=== PATIENT | female | born 1975 | race Caucasian/White ===

== ENCOUNTER 2020-02-03 01:21 | Emergency (ER) | payer OTHER, MEDICAID, SELFPAY ==
[2020-02-03 01:35] VITALS: BP 171/93; PULSE 77; RESP 24; TEMP 36.4; O2SAT 100; BMI 37.5
--- NOTE | 2020-02-03 02:08 | DI.RAD.S_ITS ---
PROCEDURE: XR CHEST 1V INDICATIONS: palpitations TECHNIQUE: One view of the chest was acquired. COMPARISON: None. FINDINGS: Surgical changes and devices: None. Lungs and pleura: Lungs are clear. No pleural effusions or pneumothorax. Mediastinum: Mediastinal contours appear normal. Heart size is normal. Bones and chest wall: No suspicious bony lesions. Overlying soft tissues appear unremarkable. IMPRESSION: No acute pulmonary process. Dictated by: Nunu Rueda M.D. on 02/03/2020 at 9:15 Approved by: Nunu Rueda M.D. on 02/03/2020 at 9:15
[2020-02-03 02:11] VITALS: BP 155/80
[2020-02-03 03:03] LABS: Add Manual Diff / Slide Review NO; Basophils Absolute Auto 0 /uL (0-100); Basophils Percent Auto 0.5 % (0-2); Eosinophils Absolute Auto 0 /uL (0-450); Eosinophils Percent Auto 0.7 % (2-4); Hematocrit 36.9 % (36-46); Lymphocytes Absolute Auto 1500 /uL (1100-4500); Lymphocytes Percent Auto 21.7 % (25-40); Mean Corpuscular HGB Conc 32.7 % (30-36); Mean Corpuscular Hemoglobin 27.6 PG (26-34); Mean Corpuscular Volume 84.4 fL (80-100); Monocytes Absolute Auto 400 /uL (0-900); Monocytes Percent Auto 5.6 % (3-14); Neutrophils Absolute Auto 5000 /uL (1500-7000); Neutrophils Percent Auto 71.5 % (50-75); Platelet Count 250 X10^3/uL (150-400); Red Blood Cell Count 4.37 X10^6/uL (4.0-5.2); Red Cell Distribution Width 13.8 % (11.6-14.8); White Blood Cell Count 6.9 X10^3/uL (4.5-11.0)
[2020-02-03 03:07] LABS: Alanine Aminotransferase 16 IU/L (<35); Albumin Globulin Ratio 1.2 (1.0-2.8); Alkaline Phosphatase 89 U/L (38-126); Aspartate Aminotransferase 21 IU/L (14-36); BUN Creatinine Ratio 11.5 (6-22); Bilirubin Total 0.2 mg/dL (0.2-1.3); Blood Urea Nitrogen 7 mg/dL (7-17); Calcium 9.6 mg/dL (8.4-10.2); Carbon Dioxide 28 mmol/L (22-32); Chloride 103 mmol/L (98-107); Estimated Glomerular Filt Rate > 60.0 mL/min (>60); Globulin 3.4 g/dL (1.7-4.1); Glucose 109 mg/dL (70-100); HEMOLYSIS < 15 (0-50); Sodium 138 mmol/L (137-145); Total Protein 7.4 g/dL (6.3-8.2)
[2020-02-03 03:18] LABS: Troponin I < 0.012 ng/mL (0.01-0.034)
[2020-02-03 03:50] LABS: Thyroid Stimulating Hormone 2.75 uIU/mL (0.47-4.68)
--- NOTE | 2020-02-03 04:13 | ED_ITS ---
HPI - Chest Pain General Chief Complaint: Chest Pain Stated Complaint: heart misbeating/pain with every breath Time Seen by Provider: 02/03/20 01:41 Source: patient Mode of arrival: Family Vehicle History of Present Illness HPI narrative: 44-year-old woman with a history of sleep apnea prior episode of elevated BNP at 100, intermittent lower extremity edema and generalized anxiety presents with palpitations which she describes as being dramatically symptomatic every time she takes a deep breath and feeling like she is able to sleep only a few minutes while sitting up in a chair due to her sleep apnea. She has a self purchased oxygen canister for as needed use due to her perceived severity of sleep apnea. She states that the only thing that helps is 0.5 mg of Ativan and does note that it convenient that it also helps with some of her anxiety. Symptoms have been getting worse after an incident a week ago where she was pulled over by a police detention attendant felt that he was very invasive while he was asking if she needed assistance and ambulance called during the routine traffic stop. She has had increased stress and increased additional symptoms since. she recently moved from [place] and no medical records are currently available Review of Systems Review of Systems Narrative: Markedly positive with anxiety, depression, dyspnea, orthopnea, palpitations, lower extremity edema, dysuria, All systems reviewed and are unremarkable except as noted in HPI and below Patient History Medical History Anxiety (Acute) Depression (Acute) Palpitations (Acute) Social History Smoking Status: Never smoker Smoking Status: Never smoker Substance Use Type: does not use Exam Narrative Exam Narrative: General: Healthy appearing, in no acute distress. Able to give a complete and coherent history. Well-nourished well-developed HEENT: Moist mucous membranes, normal sclera with reactive pupils, Neck: No JVD, supple Respiratory: Lungs are clear to auscultation, no wheezing no rales no rhonchi. Full and symmetrical air movement Cardiac: Regular rate and rhythm no murmurs no bruits Abdomen: Soft nontender good bowel tones, no flank pain Skin: Warm and dry, no rashes Neurologic: Grossly neurologically intact with no obvious asymmetries or abnormalities Extremities: No trauma, well perfused Psych: Cooperative, appropriate insight and affect Of note, patient describes severe arrhythmia with deep breathing. When observed deep breathing with telemetry in place no significant arrhythmia she continues to note significant symptoms Initial Vital Signs Initial Vital Signs: Vital Signs Temperature 97.5 F L 02/03/20 01:35 Pulse Rate 77 02/03/20 01:35 Respiratory Rate 24 02/03/20 01:35 Blood Pressure 171/93 H 02/03/20 01:35 Pulse Oximetry 100 02/03/20 01:35 Course Orders Ordered: ED Orders 02/03/20 01:28 EKG-12 Lead Stat 02/03/20 02:08 XR chest 1V Stat 02/03/20 02:45 Complete Blood Count AUTO DIFF Stat Comprehensive Metabolic Panel Stat Thyroid Stimulating Hormone Stat Troponin I Stat Vital Signs Vital signs: Vital Signs - 8 hr 02/03/20 01:35 02/03/20 02:11 Temperature 97.5 F L Pulse Rate 77 Respiratory Rate 24 Blood Pressure 171/93 H Blood Pressure [Left Arm] 155/80 H Pulse Oximetry 100 MDM - Chest Pain Medical Records Data Attestation: I reviewed the patient's medical records. Lab Data Attestation: I reviewed the patient's lab results. Lab results narrative: Labs including a TSH are all were unremarkable Result diagrams: 02/03/20 02:45 02/03/20 02:45 Labs: Lab Results 02/03/20 02/03/20 02/03/20 Range/Units 02:45 02:45 02:45 WBC 6.9 (4.5-11.0) X10^3/uL RBC 4.37 (4.0-5.2) X10^6/uL Hgb 12.0 (12.0-16.0) g/dL Hct 36.9 (36-46) % MCV 84.4 (80-100) fL MCH 27.6 (26-34) PG MCHC 32.7 (30-36) % RDW 13.8 (11.6-14.8) % Plt Count 250 (150-400) X10^3/uL Neut % (Auto) 71.5 (50-75) % Lymph % (Auto) 21.7 L (25-40) % [place] % (Auto) 5.6 (3-14) % Eos % (Auto) 0.7 L (2-4) % Baso % (Auto) 0.5 (0-2) % Neut # (Auto) 5000 (6146-5255) /uL Lymph # (Auto) 1500 (4417-1597) /uL [place] # (Auto) 400 (0-900) /uL Eos # (Auto) 0 (0-450) /uL Baso # (Auto) 0 (0-100) /uL Sodium 138 (137-145) mmol/L Potassium 4.0 (3.4-5.1) mmol/L Chloride 103 (98-107) mmol/L Carbon Dioxide 28 (22-32) mmol/L BUN 7 (7-17) mg/dL Creatinine 0.61 (0.52-1.04) mg/dL Estimated GFR > 60.0 (>60) mL/min BUN/Creatinine Ratio 11.5 (6-22) Glucose 109 H (70-100) mg/dL Calcium 9.6 (8.4-10.2) mg/dL Total Bilirubin 0.2 (0.2-1.3) mg/dL AST 21 (14-36) IU/L ALT 16 (<35) IU/L Alkaline Phosphatase 89 (38-126) U/L Troponin I < 0.012 (0.01-0.034) ng/mL Total Protein 7.4 (6.3-8.2) g/dL Albumin 4.0 (3.5-5.0) g/dL Globulin 3.4 (1.7-4.1) g/dL Albumin/Globulin Ratio 1.2 (1.0-2.8) TSH 2.75 (0.47-4.68) uIU/mL Imaging Data Chest x-ray: Attestation: I personally reviewed and interpreted this imaging study as follows: My Impression: Unremarkable chest x-ray with normal cardiac silhouette, no infiltrates no pneumo or hemothorax ECG Data Attestation: I personally reviewed and interpreted this ECG as follows: Interpretation: Sinus rhythm at a rate of 84, sinus arrhythmia appreciated normal axis normal intervals, no acute ischemic changes MDM Narrative Medical decision making narrative: Significant anxiety with dramatic somatic symptoms that are not corroborated with objective evidence this time. Appears to be sleeping comfortably and awakes with a start describing dramatic palpitations while sinus rhythm with mild arrhythmia in the 80s is appreciated on telemetry. She describes episodes of severe tachycardia again similar rate controlled mild sinus arrhythmia it is the observable rhythm at the time of her symptoms She does have an appointment with the primary care physician to establish care tomorrow. She is provided copies of blood work today. Discharge Plan Departure Patient Disposition: Home Clinical Impression: Palpitations Sleep apnea Qualifiers: Sleep apnea type: unspecified type Qualified Code(s): G47.30 - Sleep apnea, unspecified Instructions: DI for Palpitations Activity Restrictions/Additional Instructions: Thank you for coming in Your blood workup, EKG chest x-ray physical exam are all very reassuring. Your loan documents closer shows a rate controlled sinus rhythm with mild sinus arrhythmia when you are having this sensations of severe abnormality with deep breathing. I would encourage you to follow-up with her primary care physician. I have provided you with copies of your lab work as well as EKG we did in the emergency room this evening. Despite the discomfort and distress that you are experiencing with the sensations I am not finding life-threatening issue at this time. I hope you are able to find symptomatic relief after meeting with your new primary care physician. I wish you the best Referrals: Vandana Chang ARNP [Primary Care Provider] -
[2020-02-03 04:35] VITALS: BP 141/63; PULSE 74; RESP 15; O2SAT 96
== END 2020-02-03 04:38 | disposition home or self-care (01) ==
PROVIDERS: Emergency Provider Emergency Medicine; PCP Nurse Practitioner
DX: R00.2 Palpitations (principal); G47.30 Sleep apnea, unspecified; F41.9 Anxiety disorder, unspecified; F32.9 Major depressive disorder, single episode, unspecified; R30.0 Dysuria; R60.9 Edema, unspecified
CPT/HCPCS: 36415; 71045; 80053; 84443; 84484; 85025; 93005; 99283; 99284